=== PATIENT | female | born 1950 | race Caucasian/White ===

== ENCOUNTER 2017-12-22 14:13 | Emergency (ER) | payer MEDICARE, MEDICAID ==
[2017-12-22 15:15] LABS: URINE SOURCE CLEAN C
[2017-12-22] MEDS ORDERED: Sodium Chloride 0.9% 250 ML IV ONE (15:16)
[2017-12-22 15:19] LABS: URINE BILIRUBIN NEGATIVE (NEGATIVE); URINE BLOOD MODERATE (NEGATIVE); URINE GLUCOSE (UA) >=1000 mg/dL (NEGATIVE); URINE KETONE NEGATIVE (NEGATIVE); URINE LEUKOCYTE ESTERASE SMALL (NEGATIVE); URINE MICROSCOPIC INDICATED? YES; URINE NITRATE NEGATIVE (NEGATIVE); URINE PROTEIN NEGATIVE (NEGATIVE); URINE UROBILINOGEN 0.2 E.U./dL (0.2 - 1.0)
[2017-12-22 15:20] LABS: URINE COLOR YELLOW
[2017-12-22 15:25] LABS: URINE CLARITY CLOUDY (CLEAR)
[2017-12-22 15:26] LABS: URINE BACTERIA 2+ /hpf (NONE SEEN); URINE EPITHELIAL CELLS FEW /lpf (FEW)
[2017-12-22 15:28] LABS: % BASOPHILS 0.9 % (0.0-2.0); % EOSINOPHILS 3.2 % (0.0-5.0); % LYMPHOCYTES 24.2 % (20.0-50.0); % MONOCYTES 4.5 % (2.0-10.0); % NEUTROPHILS 67.2 % (40.0-80.0); BASOPHILE ABSOLUTE 0.1 Th/cumm (0-0.2); EOSINOPHILE ABSOLUTE 0.3 Th/cmm (0.1-0.4); HEMATOCRIT 38.2 % (41.0-60); HEMOGLOBIN 12.3 gm/dL (12-16); LYMPHOCYTE ABSOLUTE 2.2 Th/cmm (1.5-3.0); MEAN CORPUSCULAR HEMOGLOBIN 24.8 pg (27.0-31.0); MEAN CORPUSCULAR HGB CONC 32.2 pg (28.0-36.0); MEAN PLATELET VOLUME 9.3 fl; MONOCYTE ABSOLUTE 0.4 Th/cmm (0.3-1.0); NEUTROPHILE ABSOLUTE 5.9 Th/cmm (1.8-8.0); PLATELET COUNT 336 Th/cmm (150-400); RED BLOOD COUNT 4.97 Mil/cmm (3.80-5.20); RED CELL DISTRIBUTION WIDTH 13.4 % (11.5-20.0); WHITE BLOOD COUNT 8.9 Th/cmm (4.8-10.8)
[2017-12-22] MEDS ORDERED: Ciprofloxacin 400mg Premix PB 400 MG/200 ML BAG IV ONE ×2 (15:30→16:23)
[2017-12-22 15:46] LABS: ALB/GLOB RATIO 1.2 (1.0-1.8); ALBUMIN 3.6 gm/dL (3.7-5.3); ANION GAP 9.6 (7.0-16.0); BILIRUBIN,TOTAL 0.3 mg/dL (0.3-1.0); CARBON DIOXIDE 28.5 mEq/L (21.0-31.0); CREATININE - SERUM 1.3 mg/dL (0.6-1.2); GFR AFRICAN-AMERICAN 52.4 ml/min (>90); GFR NON AFRICAN-AMERICAN 43.3 ml/min; MAGNESIUM 1.9 mg/dL (1.9-2.7); PHOSPHOROUS 2.5 mg/dL (2.5-5.0); POTASSIUM SERUM 4.1 mEq/L (3.5-5.1); TOTAL PROTEIN,SERUM 6.5 gm/dL (6.0-8.3)
[2017-12-22] MEDS ORDERED: INSULIN HUMAN REGULAR 100 UNITS/ML UNIT SUBQ ONE (17:49)
[2017-12-22] MEDS ORDERED: INSULIN HUMAN REGULAR 100 UNITS/ML UNIT ONE (17:53)
[2017-12-22] MEDS ORDERED: INSULIN ASPART, RECOMBINANT 100 UNITS/ML SUBQ ONE (17:58)
[2017-12-22] MEDS ORDERED: INSULIN 70/30 100 UNITS/ML SUBQ ONE (18:13)
--- NOTE | 2017-12-22 19:01 | ED Physician Chart ---
ED Chief Complaint/HPI - Patient Information Date Seen:: 12/22/17 Time Seen:: 14:25 Chief Complaint:: vaginal discharge History of Present Illness:: vaginal discharge in a woman who gets bathed one to 2 times a week. No care is given to clean her vagina by the nurses at the facility according to the patient. She states that she passed a "ball" of discharge from her vagina a couple of days before. Patient is not sexually active. Allergies:: Allergies Allergy/AdvReac Type Severity Reaction Status Date / Time No Known Allergies Allergy Verified 12/22/17 14:25 Vitals:: Vital Signs - 8 hr 12/22/17 12/22/17 12/22/17 14:25 18:29 18:30 Temp 98.3 F 98.5 F 98.5 F HR 86 91 91 RR 16 16 16 BP 113/49 113/65 O2 Sat % 95 99 99 Historian:: Patient Review:: Nurse's Note Reviewed ED Review of Systems - Review of Systems General/Constitutional: No fever, No chills, No weight loss, No weakness, No diaphoresis, No edema, No loss of appetite Skin: No skin lesions, No rash, No bruising Head: No headache, No light-headedness Eyes: No loss of vision, No pain, No diplopia ENT: No earache, No nasal drainage, No sore throat, No tinnitus Neck: No neck pain, No swelling, No thyromegaly, No stiffness, No mass noted Cardio Vascular: No chest pain, No palpitations, No PND, No orthopnea, No edema Pulmonary: No SOB, No cough, No sputum, No wheezing GI: No nausea, No vomiting, No diarrhea, No pain, No melena, No hematochezia, No constipation, No hematemesis G/U: Dysuria Insurance Processor: Vaginal discharge Musculoskeletal: No bone or joint pain, No back pain, No muscle pain Endocrine: No polyuria, No polydipsia Psychiatric: No prior psych history, No depression, No anxiety, No suicidal ideation Hematopoietic: No bruising, No lymphadenopathy Allergic/Immuno: No urticaria, No angioedema Neurological: No syncope, No focal symptoms, No weakness, No paresthesia, No headache, No seizure, No dizziness, No confusion, No vertigo ED Past Medical History - Past Medical History Obtainable: Yes Past Medical History: HTN, DM, Thyroid disorder, Other (obesity; RLE weakness for 15 years (her primary care physician is aware of this and has worked her up for this); neuropathy; gastritis) Family Medical History - Family Member Mother History Unknown: Yes Ethnicity: Living Status: Hx Family Cancer: No Hx Family Coronary Artery Disease: No Hx Family Congestive Heart Failure: No Hx Family Hypertension: No Hx Family Stroke: No Hx Family Diabetes: Yes Hx Family Seizures: No Hx Family Dementia: No Hx Family AIDS: No Hx Family HIV: No Hx Family COPD: No Hx Family Hepatitis: No Hx Family Psychiatric Problems: No Hx Family Tuberculosis: No ED Physical Exam - Physical Examination General/Constitutional: Awake Other Gen/Cons comments:: morbidly obese. Head: Atraumatic Eyes: Lids, conjuctiva normal, PERRL, EOMI Other Skin comments:: eugenie underneath abdominal pannus with remnants of powder present. ENMT: External ears, nose nl Neck: Nontender Respiratory: Nl effort/Exclusion Cardio Vascular: RRR GI: No tenderness/rebounding/guarding, No organomegaly, No hernia, Normal BS's, Nondistended, No mass/bruits Other GI comments:: eugenie underneath abdominal pannus with remnants of powder present underneath it. : No CVA tenderness Extremities: No tenderness or effusion, Full ROM, normal strength in all extremities, No edema, Normal digits & nails Neuro/Psych: Alert/oriented, Normal sensory exam, Judgement/insight normal, Mood normal, Normal gait, No focal deficits Other Neuro/Psych comments:: RLE weakness for 15 years. Misc: Normal back, No paraspinal tenderness ED Labs/Radiology/EKG Results - Lab Results Results: Laboratory Tests 12/22/17 12/22/17 12/22/17 14:40 15:18 15:18 WBC 8.9 RBC 4.97 Hgb 12.3 Hct 38.2 L MCV 77.0 L MCH 24.8 L MCHC Differential 32.2 RDW 13.4 Plt Count 336 MPV 9.3 Neutrophils % 67.2 Lymphocytes % 24.2 Monocytes % 4.5 Eosinophils % 3.2 Basophils % 0.9 Sodium 134 L Potassium 4.1 Chloride 100 Carbon Dioxide 28.5 Anion Gap 9.6 BUN 22 Creatinine 1.3 H Est GFR ( Amer) 52.4 Est GFR (Non-Af Amer) 43.3 BUN/Creatinine Ratio 16.9 Glucose 371 H POC Glucose Calcium 9.0 Phosphorus 2.5 Magnesium 1.9 Total Bilirubin 0.3 AST 21 ALT 15 Alkaline Phosphatase 57 Total Protein 6.5 Albumin 3.6 L Globulin 2.9 Albumin/Globulin Ratio 1.2 TSH Urine Source CLEAN C Urine Color YELLOW Urine Clarity CLOUDY H Urine pH 6.0 Ur Specific [place] 1.010 Urine Protein NEGATIVE Urine Glucose (UA) >=1000 H Urine Ketones NEGATIVE Urine Blood MODERATE H Urine Nitrate NEGATIVE Urine Bilirubin NEGATIVE Urine Urobilinogen 0.2 Ur Leukocyte Esterase SMALL H Urine RBC 5-10 H Urine WBC 6-10 H Ur Epithelial Cells FEW Urine Bacteria 2+ H Epi Cells (Wet Prep) Bacteria (Wet Prep) Clue Cells (Wet Prep) Trichomonas (Wet Prep) Vaginal WBC Vaginal RBC Yeast (Wet Prep) 12/22/17 12/22/17 12/22/17 15:18 15:19 16:00 WBC RBC Hgb Hct MCV MCH MCHC Differential RDW Plt Count MPV Neutrophils % Lymphocytes % Monocytes % Eosinophils % Basophils % Sodium Potassium Chloride Carbon Dioxide Anion Gap BUN Creatinine Est GFR ( Amer) Est GFR (Non-Af Amer) BUN/Creatinine Ratio Glucose POC Glucose 356 H Calcium Phosphorus Magnesium Total Bilirubin AST ALT Alkaline Phosphatase Total Protein Albumin Globulin Albumin/Globulin Ratio TSH 1.27 Urine Source Urine Color Urine Clarity Urine pH Ur Specific [place] Urine Protein Urine Glucose (UA) Urine Ketones Urine Blood Urine Nitrate Urine Bilirubin Urine Urobilinogen Ur Leukocyte Esterase Urine RBC Urine WBC Ur Epithelial Cells Urine Bacteria Epi Cells (Wet Prep) OCCASIONAL Bacteria (Wet Prep) FEW Clue Cells (Wet Prep) NONE SEEN Trichomonas (Wet Prep) NONE SEEN Vaginal WBC FEW Vaginal RBC FEW Yeast (Wet Prep) NONE SEEN 12/22/17 17:37 WBC RBC Hgb Hct MCV MCH MCHC Differential RDW Plt Count MPV Neutrophils % Lymphocytes % Monocytes % Eosinophils % Basophils % Sodium Potassium Chloride Carbon Dioxide Anion Gap BUN Creatinine Est GFR ( Amer) Est GFR (Non-Af Amer) BUN/Creatinine Ratio Glucose POC Glucose 267 H Calcium Phosphorus Magnesium Total Bilirubin AST ALT Alkaline Phosphatase Total Protein Albumin Globulin Albumin/Globulin Ratio TSH Urine Source Urine Color Urine Clarity Urine pH Ur Specific [place] Urine Protein Urine Glucose (UA) Urine Ketones Urine Blood Urine Nitrate Urine Bilirubin Urine Urobilinogen Ur Leukocyte Esterase Urine RBC Urine WBC Ur Epithelial Cells Urine Bacteria Epi Cells (Wet Prep) Bacteria (Wet Prep) Clue Cells (Wet Prep) Trichomonas (Wet Prep) Vaginal WBC Vaginal RBC Yeast (Wet Prep) ED Septic Shock - . Is Septic Shock (SBP<90, OR Lactate>4 mmol\\L) present?: No - <6hrs of presentation: Vital Signs: Vital Signs - 8 hr 12/22/17 12/22/17 12/22/17 14:25 18:29 18:30 Temp 98.3 F 98.5 F 98.5 F HR 86 91 91 RR 16 16 16 BP 113/49 113/65 O2 Sat % 95 99 99 ED Reassessment (Disposition) - Reassessment Reassessment Condition:: Improved - Diagnosis Diagnosis:: Urinary tract infection Eugenie intertrigo Diabetes mellitus - Aftercare/Follow up Instructions Aftercare/Follow-Up Instructions:: Refer to Discharge Instructions Medication Prescribed:: Ciprofloxacin 500 mg po bid # 20 - Patient Disposition Discharge/Transfer:: Residential/Boarding Care Condition at Disposition:: Stable, Improved
[2017-12-23] MEDS ORDERED: INSULIN 70/30 100 UNITS/ML SUBQ ONE (17:50)
== END 2017-12-22 19:45 ==
LOC: ER 14:13
DX: N39.0 Urinary tract infection, site not specified (principal); B37.2 Candidiasis of skin and nail; E11.9 Type 2 diabetes mellitus without complications; I10 Essential (primary) hypertension; E07.9 Disorder of thyroid, unspecified
CPT/HCPCS: 99284; 96365; 96372 ×2; 36415; 36416 ×2; 82948 ×2; 84443; 85025; 87070; 87086; 87210; 81001; 83036; 83735; 84100; 80053; 87040 ×2; J0744; J1815; Z7502